=== PATIENT | female | born 1990 | race African-American/Black ===

== ENCOUNTER 2017-11-09 12:27 | Emergency (ER) | payer SELFPAY ==
[~2017-11-09 12:27] MED LIST: LO LTAB PO
[2017-11-09 12:30] VITALS: BP 144/66; PULSE 71; RESP 16; TEMP 98.6; O2SAT 100
[2017-11-09] MEDS ORDERED: MIREIUD I-UTERINE (12:35)
[2017-11-09] MEDS ORDERED: SODIUM CHLOR 0.9% 1000 ML INJ 1,000 ML IV ONE (12:43)
[2017-11-09] MEDS ORDERED: PROCHLORPERAZINE INJ 10 MG/2 ML VIAL IVP ONE (12:45)
[2017-11-09] MEDS ORDERED: KETOROLAC TROMETHAMINE 30 MG/ML (IVP) VIAL IVP ONE (12:45)
[2017-11-09] MEDS ORDERED: diphenhydrAMINE HCL 50 MG/ML VIAL IVP ONE (12:45)
--- NOTE | 2017-11-09 13:30 | RADRPT ---
EXAM DATE/TIME: 11/09/2017 13:08 [facility] COMPARISON: No previous studies available for comparison. INDICATIONS : Headache, weakness, nasal congestion for 3 days RADIATION DOSE: 38.45 CTDIvol (mGy) MEDICAL HISTORY : None SURGICAL HISTORY : None. ENCOUNTER: Initial ACUITY: 3 days PAIN SCALE: 6/10 LOCATION: cranial TECHNIQUE: Multiple contiguous axial images were obtained of the head. Using automated exposure control and adj ustment of the mA and/or kV according to patient size, radiation dose was kept as low as reasonably a chievable to obtain optimal diagnostic quality images. DICOM format image data is available electro nically for review and comparison. FINDINGS: The lateral ventricles were normal in size. There is preservation of conrad/white matter differentiati on. No CSF is discernible in the sulci or in the cisterns about the mesencephalon and brainstem stop the 3rd ventricle is narrow. The 4th ventricle is normal in size. No evidence of acute blood produ cts. The bony calvarium is grossly intact CONCLUSION: Nonvisualization of the cisterns about the brainstem and mesencephalon and no CSF discernible in the sulci in the supratentorial brain. Recommend further evaluation with MRI brain with and without cont rast to evaluate for possible pseudo-tumor cerebri. Marcial Moe MD on November 09, 2017 at 13:24 Board Certified Radiologist. This report was verified electronically.
--- NOTE | 2017-11-09 13:52 | PD ---
HPI Chief Complaint: Cold / Flu Symptoms Time Seen by Provider: 12:36 Travel History International Travel<30 days: No Contact w/Intl Traveler<30days: No Traveled to known affect area: No History of Present Illness HPI 27-year-old female that presents to the ED for evaluation of headache, dizziness and lightheadedness for the past 3 days. Per patient his symptoms are progressively gotten worse. Per patient she has a lot of congestion but no cough. Per patient she has allergies throughout the year but she states that the congestion is different for the past 3 days. More significant. Per patient she feels like a headache feels like a pressure. States that the headache is pressure-like on the forehead as well as on the back of the head. Denies any blurred vision or double vision. No chest pain or shortness of breath. No fevers chills or sweats. No ear pain. No sick contacts. States having a sore throat as well. Has no allergies to medication. Has not seen anybody for this. Denies ever been diagnosed with migraine headaches. She states having headaches in the past but not like this. Per patient this is more significant. She has been taking [id number] remedies with minimal to no relief. She denies any numbness, tingling, weakness. Per patient the pain is 8 out of 10 feels like pressure. No injury to the head. Denies . PFSH Past Medical History Diminished Hearing: No Headaches: Yes Influenza Vaccination: No ?: Not : 2 Para: 2 Past Surgical History Surgical History: No Previous Surgery Social History Alcohol Use: Yes (weekly) Tobacco Use: No Substance Use: No Allergies-Medications (Allergen,Severity, Reaction): Coded Allergies: No Known Allergies (Verified Adverse Reaction, Unknown, 11/09/17) Reported Meds & Prescriptions Reported Meds & Active Scripts Active Zofran (Ondansetron HCl) 4 Mg Tab 4 Mg PO Q6HR PRN Diclofenac Sodium DR (Diclofenac Sodium) 75 Mg Tabdr 75 Mg PO BID PRN Amoxicillin 875 Mg Tab 875 Mg PO BID 10 Days Reported Mirena (Levonorgestrel (Iud)) 20 Mcg/24 Hour (5 Years) Iud 1 Ea I-UTERINE ONCE Review of Systems Except as stated in HPI: all other systems reviewed are Neg Physical Exam Narrative GENERAL: Well-nourished, well-developed patient in no apparent distress. SKIN: Warm and dry. HEAD: Atraumatic. Normocephalic. EYES: Pupils equal and round reactive to light and accommodation. No scleral icterus. No injection or drainage. ENT: No nasal bleeding or discharge. Mucous membranes pink and moist. TMs are clear with no sign of infection or perforation. No mastoid tenderness. Ear canals are intact bilaterally. No lymphadenopathy. Nostril mucosa is red and moist with clear mucus noted. sinus tenderness to palpation noted. Tonsils are not enlarged or swollen. No ulvua Deviation. Tongue is midline. NECK: Trachea midline. No JVD. No meningeal signs noted CARDIOVASCULAR: Regular rate and rhythm. RESPIRATORY: No accessory muscle use. Clear to auscultation. Breath sounds equal bilaterally. GASTROINTESTINAL: Abdomen soft, non-tender, nondistended. Hepatic and splenic margins not palpable. MUSCULOSKELETAL: Extremities without clubbing, cyanosis, or edema. No obvious deformities. Full range of motion of the upper and lower extremities bilaterally. 2+ pulses bilaterally. NEUROLOGICAL: Awake and alert. No obvious cranial nerve deficits. Motor grossly within normal limits. Five out of 5 muscle strength in the arms and legs. Normal speech. PSYCHIATRIC: Appropriate mood and affect; insight and judgment normal. Data Data Last Documented VS Vital Signs Date Time Temp Pulse Resp B/P (MAP) Pulse Ox O2 Delivery O2 Flow Rate FiO2 11/09/17 14:57 80 16 119/74 (89) 100 Room Air 11/09/17 12:[address] Brain W/O Iv Contrast(Rout) (11/09/17 12:43) Iv Access Insert/Monitor (11/09/17 12:43) Ketorolac Inj (Toradol Inj) (11/09/17 12:45) Prochlorperazine Inj (Compazine Inj) (11/09/17 12:45) Diphenhydramine Inj (Benadryl Inj) (11/09/17 12:45) Sodium Chlor 0.9% 1000 Ml Inj (Ns 1000 M (11/09/17 12:43) Mri Brain W&W/O Contrast (11/09/17 ) Basic Metabolic Panel (Bmp) (11/09/17 13:58) Gadodiamide Pf Inj (Omniscan Pf Inj) (11/09/17 16:32) Ed Discharge Order (11/09/17 17:26) Labs Laboratory Tests Test 11/09/17 14:15 Blood Urea Nitrogen 11 MG/DL Creatinine 0.66 MG/DL Random Glucose 79 MG/DL Calcium Level 8.9 MG/DL Sodium Level 137 MEQ/L Potassium Level 3.6 MEQ/L Chloride Level 103 MEQ/L Carbon Dioxide Level 25.8 MEQ/L Anion Gap 8 MEQ/L Estimat Glomerular Filtration Rate 129 ML/MIN MDM Medical Decision Making Medical Screen Exam Complete: Yes Emergency Medical Condition: Yes Medical Record Reviewed: Yes Interpretation(s) Last Impressions Head CT 11/09/17 1243 Signed Impressions: Service Date/Time: November 13:08 - CONCLUSION: Nonvisualization of the cisterns about the brainstem and mesencephalon and no CSF discernible in the sulci in the supratentorial brain. Recommend further evaluation with MRI brain with and without contrast to evaluate for possible pseudo-tumor cerebri. Marcial Moe MD Last Impressions Head CT 11/09/17 1243 Signed Impressions: Service Date/Time: November 13:08 - CONCLUSION: Nonvisualization of the cisterns about the brainstem and mesencephalon and no CSF discernible in the sulci in the supratentorial brain. Recommend further evaluation with MRI brain with and without contrast to evaluate for possible pseudo-tumor cerebri. Marcial Moe MD Brain MRI 11/09/17 0000 Signed Impressions: Service Date/Time: November 16:15 - CONCLUSION: 1. 5 mm inferior cerebellar tonsillar ectopia, characteristic of Chiari I malformation. 2. No abnormal areas of enhancement in the brain or dura. No effacement of the cisterns. Marcial Moe MD Differential Diagnosis Headache versus sinus headache versus migraine headache versus pseudotumor cerebrai Narrative Course 27-year-old female that presents to the ED for evaluation of headache. Patient was properly examined and was found to have signs and symptoms which appear to be more consistent with sinus headache. She denies any history of headaches like this in the past. Neurovascular she looks fine but she does appear to be a little discomfort. Imaging and IV medications were provided. CT showed abnormality concerning for pseudotumor cerebri per radiology. They recommended MRI. MRI ordered and show what appears to be Cheli type I abnormality. This was discussed with my attending Dr. Batres who evaluated the patient herself states that this is not likely the cause of the patient's pain will likely viral infection versus sinusitis. Patient was told results. We do recommend that the patient follows up outpatient with her neurosurgeon. Patient was provided with a couple names to follow-up with. When that the referral was ordered as well. She will be given a prescription for diclofenac sodium, Zofran and amoxicillin to cover for sinus infection. Told to follow-up with PCP. See ED if worsening symptoms. Diagnosis Primary Impression: Sinusitis Qualified Codes: J01.10 - Acute frontal sinusitis, unspecified Additional Impression: Chiari malformation type I Referrals: Owen Bennett MD, Federico Carlos MD Patient Instructions: General Instructions Additional Instructions: Take medication as prescribed. Follow-up with neurosurgeon for further evaluation and abnormality found in the MRI. This is likely been there since you were born. See ED if worsening symptoms. Follow-up with PCP. Med/Other Pt SpecificInfo: Prescription(s) given Scripts Ondansetron (Zofran) 4 Mg Tab 4 MG PO Q6HR Y for NAUSEA OR VOMITING, #14 TAB 0 Refills Prov: Hailee Batres MD 11/09/[address] (Diclofenac Sodium DR) 75 Mg Tabdr 75 MG PO BID Y for PAIN SCALE 1 TO 10, #20 TAB 0 Refills Prov: Hailee Batres MD 11/09/17 Amoxicillin (Amoxicillin) 875 Mg Tab 875 MG PO BID for Infection for 10 Days, #20 TAB 0 Refills Prov: Hailee Batres MD 11/09/17 Disposition: 01 DISCHARGE HOME Condition: Stable Marques Arguelles November 09, 2017 13:52
[2017-11-09 14:57] VITALS: BP 119/74; PULSE 80; RESP 16; O2SAT 100
[2017-11-09 15:02] LABS: BICARBONATE 25.8 MEQ/L (21.0-32.0); CALCIUM 8.9 MG/DL (8.5-10.1); CREATININE 0.66 MG/DL (0.50-1.00)
[2017-11-09] MEDS ORDERED: GADODIAMIDE PF 287 MG/ML 5 ML VIAL (for RAD MRI) IVCONTRAST ONE (16:32)
--- NOTE | 2017-11-09 17:09 | RADRPT ---
EXAM DATE/TIME: 11/09/2017 16:15 [facility] COMPARISON: CT BRAIN W/O CONTRAST, November 09, 2017, 13:08. INDICATIONS : Mass. CONTRAST: 15 cc Omniscan (gadodiamide) IV MEDICAL HISTORY : None. SURGICAL HISTORY : None. ENCOUNTER: Initial ACUITY: 1 week PAIN SCORE: 6/10 LOCATION: Head. TECHNIQUE: Multiplanar, multisequence MRI of the brain was performed both prior to and following the administrat ion of paramagnetic contrast. FINDINGS: CEREBRUM: The ventricles are normal for age. No evidence of midline shift, mass lesion, hemorrhage or acute in farction. No extraaxial fluid collections are seen. The pituitary gland and suprasellar cistern are normal in configuration. WHITE MATTER: No significant signal abnormalities are seen in the white matter. POSTERIOR FOSSA: The cerebellum and brainstem are intact. No midbrain anomaly seen. The ambient wing and periparotid seen cisterns are normal in configuration without evidence of effacement. The 4th ventricle is midl ine. The cerebellopontine angle is unremarkable. The there is mild bilateral tonsillar herniation wi th the cerebellar tonsil extending up to 5 mm below the plane of the foramen magnum. The inferior ma rgin of the tonsils remains convex and there is no evidence of tonsillar beaking.. DIFFUSION IMAGING: No focal areas of restricted diffusion are seen. No evidence of acute infarction. EXTRACRANIAL: The visualized portions of the orbits and paranasal sinuses are unremarkable. POST-CONTRAST: No abnormal areas of parenchymal or dural enhancement. No evidence of blood-brain barrier breakdown. CONCLUSION: 1. 5 mm inferior cerebellar tonsillar ectopia, characteristic of Chiari I malformation. 2. No abnormal areas of enhancement in the brain or dura. No effacement of the cisterns. Marcial Moe MD on November 09, 2017 at 16:59 Board Certified Radiologist. This report was verified electronically.
[2017-11-09] MEDS ORDERED: ZOFR4TAB PO (17:25)
[2017-11-09] MEDS ORDERED: DICL75TA PO (17:25)
[2017-11-09] MEDS ORDERED: AMOX875T PO (17:25)
--- NOTE | 2017-11-09 17:26 | PD ---
Data Data Last Documented VS Vital Signs Date Time Temp Pulse Resp B/P (MAP) Pulse Ox O2 Delivery O2 Flow Rate FiO2 11/09/17 14:57 80 16 119/74 (89) 100 Room Air 11/09/17 12:[address] Brain W/O Iv Contrast(Rout) (11/09/17 12:43) Iv Access Insert/Monitor (11/09/17 12:43) Ketorolac Inj (Toradol Inj) (11/09/17 12:45) Prochlorperazine Inj (Compazine Inj) (11/09/17 12:45) Diphenhydramine Inj (Benadryl Inj) (11/09/17 12:45) Sodium Chlor 0.9% 1000 Ml Inj (Ns 1000 M (11/09/17 12:43) Mri Brain W&W/O Contrast (11/09/17 ) Basic Metabolic Panel (Bmp) (11/09/17 13:58) Gadodiamide Pf Inj (Omniscan Pf Inj) (11/09/17 16:32) Labs Laboratory Tests Test 11/09/17 14:15 Blood Urea Nitrogen 11 MG/DL Creatinine 0.66 MG/DL Random Glucose 79 MG/DL Calcium Level 8.9 MG/DL Sodium Level 137 MEQ/L Potassium Level 3.6 MEQ/L Chloride Level 103 MEQ/L Carbon Dioxide Level 25.8 MEQ/L Anion Gap 8 MEQ/L Estimat Glomerular Filtration Rate 129 ML/MIN MDM Supervised Visit with AISHA: Yes Narrative Course The history, exam, and medical decision-making in the associated midlevel provider note were completed with my assistance. I reviewed and agree with the findings presented. I attest that I had a [id number] encounter with the patient on the same day, and personally performed and documented my assessment and findings in the medical record. *My assessment and Findings: This is a 27-year-old female who presents to the emergency department with headache. She has also had some upper respiratory symptoms. Given the severity of her headache a CT of the head was ordered which demonstrated crowding in the posterior fossa. MRI was obtained which demonstrates a Chiari I malformation. I am not certain this is what is causing her headaches but I think it merits follow-up with neurosurgery. Otherwise I think she is appropriate for outpatient management. Patient was discharged home. Hailee Batres MD November 09, 2017 17:26
== END 2017-11-09 17:56 | disposition home or self-care (01) ==
LOC: NEPC 12:27
DX: J01.10 Acute frontal sinusitis, unspecified (principal); G93.5 Compression of brain
CPT/HCPCS: 70450; 70553; 80048; 96361; 96374; 96375; 99285; A9579; J0780; J1200; J1885; J7030